=== PATIENT | female | born 1985 | race Caucasian/White ===

== ENCOUNTER 2019-07-14 09:21 | Emergency (ER) | payer SELFPAY ==
[~2019-07-14] VITALS: Ht 177.8 cm; Wt 98.0 kg
[2019-07-14] MEDS ORDERED: SODIUM CHLORIDE 0.9% 1,000 ML IV ONE (10:33)
[2019-07-14] MEDS ORDERED: MORPHINE SULFATE 4 MG/ML CPJ (NOT FOR IM USE) IV STA (10:33)
[2019-07-14] MEDS ORDERED: ONDANSETRON HCL 4MG/2ML INJ IV STA (10:33)
[2019-07-14] MEDS ORDERED: MECLIZINE 25MG TABLET PO ONE (10:45)
[2019-07-14 11:30] LABS: BASOPHILS % 0.2 % (0.0-2.0); EOSINOPHILS % 0.1 % (0.0-5.0); HEMATOCRIT. 45.3 % (36.0-48.0); LYMPHOCYTES % 14.2 % (20.0-50.0); MEAN CORPUSCULAR HEMOGLOBIN 27.4 pg (28.0-32.0); MEAN CORPUSCULAR VOLUME 82.5 fL (81.0-99.0); MONOCYTES % 4.1 % (2.0-8.0); NEUTROPHILS % 81.4 % (40.0-76.0); PLATELET 210 x1000/uL (130-400); RED BLOOD CELL COUNT 5.49 mill/uL (4.2-5.4); RED CELL DISTRIBUTION WIDTH 14.7 % (11.6-14.6)
[2019-07-14 11:41] LABS: CHLORIDE 107 mEq/L (98-107)
[2019-07-14 11:45] LABS: ETHANOL BLOOD < 10 mg/dL
[2019-07-14 12:02] LABS: PROTHROMBIN TIME 10.1 sec (9.6-11.0)
[2019-07-14 12:32] LABS: CLARITY URINE TURBID (CLEAR); COLOR URINE YELLOW (YELLOW); KETONES URINE NEGATIVE (NEGATIVE); LEUKOCYTE ESTERASE URINE 2+ (NEGATIVE); NITRITE URINE NEGATIVE (NEGATIVE); OCCULT BLOOD URINE 1+ (NEGATIVE); PH URINE 5.5 (4.5-8.0); PROTEIN URINE NEGATIVE (NEGATIVE); SPECIFIC GRAVITY URINE 1.022 (1.005-1.030); UROBILINOGEN URINE 0.2 E.U./dL (0.2-1.0)
[2019-07-14] MEDS ORDERED: ACETAMINOPHEN 500MG TABLET PO ONE (12:45)
[2019-07-14] MEDS ORDERED: MORPHINE SULFATE 4 MG/ML CPJ (NOT FOR IM USE) IV ONE (12:45)
[2019-07-14] MEDS ORDERED: ONDANSETRON HCL 4MG/2ML INJ IV ONE (12:45)
[2019-07-14 12:53] LABS: *AMPHETAMINES SCREEN URINE NEGATIVE (NEGATIVE); *BARBITURATES SCREEN URINE NEGATIVE (NEGATIVE); *BENZODIAZEPINES SCREEN URINE NEGATIVE (NEGATIVE); *COCAINE SCREEN URINE NEGATIVE (NEGATIVE)
[2019-07-14 12:54] LABS: METHADONE URINE SCREEN NEGATIVE (NEGATIVE); PHENCYCLIDINE URINE SCREEN NEGATIVE (NEGATIVE)
[2019-07-14 12:56] LABS: CANNABINOID URINE SCREEN PRESUMTIVE POSITIVE (NEGATIVE); OPIATES URINE SCREEN PRESUMTIVE POSITIVE (NEGATIVE)
[2019-07-14] MEDS ORDERED: CEFTRIAXONE 1 G PREMIX 50 ML IV ONE (14:00)
[2019-07-14 15:45] VITALS: BP 146/84
== END 2019-07-14 16:05 | disposition home or self-care (01) ==
LOC: ER 09:43 → CANBEDREQ 20:11
DX: R55 Syncope and collapse (principal); S09.8XXA Other specified injuries of head, initial encounter; N39.0 Urinary tract infection, site not specified; F12.10 Cannabis abuse, uncomplicated; Z88.0 Allergy status to penicillin; W01.0XXA Fall on same level from slipping, tripping and stumbling without subsequent striking against object, initial encounter; Y93.89 Activity, other specified; Y92.018 Other place in single-family (private) house as the place of occurrence of the external cause
CPT/HCPCS: 36415; 70450; 71045; 72125; 80053; 80305; 80320; 81003; 81025; 83880; 84484; 85025; 85610; 93005; 96361; 96374; 96375; 96376; 99284; J2270; J2405; J7030; J8597; G0480

== ENCOUNTER 2019-12-14 13:19 | Emergency (ER) | payer MEDICAID ==
[~2019-12-14] VITALS: Ht 167.6 cm; Wt 112.0 kg
[2019-12-14] MEDS ORDERED: ACETAMINOPHEN 325MG TABLET PO ONE (14:30)
[2019-12-14 16:37] VITALS: BP 140/98
== END 2019-12-14 16:38 | disposition home or self-care (01) ==
LOC: ER 13:29
DX: M79.642 Pain in left hand (principal); E03.9 Hypothyroidism, unspecified; Z88.0 Allergy status to penicillin
CPT/HCPCS: 73130; 81025; 99283

== ENCOUNTER 2020-01-29 14:44 | Emergency (ER) | payer MEDICAID ==
[~2020-01-29] VITALS: Ht 165.1 cm; Wt 112.0 kg
[2020-01-29 14:47] VITALS: BP 111/81
[2020-01-29] MEDS ORDERED: ACETAMINOPHEN 325MG TABLET PO PRN (16:30)
== END 2020-01-29 18:56 | disposition left against medical advice (07) ==
LOC: ER 14:44
DX: O20.0 Threatened abortion (principal); Z3A.08 8 weeks gestation of pregnancy; E03.9 Hypothyroidism, unspecified; Z88.0 Allergy status to penicillin; Z98.890 Other specified postprocedural states
CPT/HCPCS: 93005; 99283

== ENCOUNTER 2020-01-30 17:13 | Emergency (ER) | payer MEDICAID ==
[~2020-01-30] VITALS: Ht 165.1 cm; Wt 111.3 kg
[2020-01-30 17:18] VITALS: BP 144/66
[2020-01-30 18:52] LABS: CLARITY URINE CLOUDY (CLEAR); COLOR URINE RED (YELLOW); KETONES URINE NEGATIVE (NEGATIVE); LEUKOCYTE ESTERASE URINE 1+ (NEGATIVE); NITRITE URINE NEGATIVE (NEGATIVE); OCCULT BLOOD URINE 3+ (NEGATIVE); PROTEIN URINE 2+ (NEGATIVE); SPECIFIC GRAVITY URINE 1.026 (1.005-1.030); UROBILINOGEN URINE 0.2 E.U./dL (0.2-1.0)
[2020-01-30 18:56] LABS: BASOPHILS % 1.2 % (0.0-2.0); EOSINOPHILS % 2.2 % (0.0-5.0); HEMATOCRIT. 42.1 % (36.0-48.0); HEMOGLOBIN. 13.7 g/dL (12.0-16.0); LYMPHOCYTES % 28.4 % (20.0-50.0); MEAN CORPUSCULAR HEMOGLOBIN 27.3 pg (28.0-32.0); MEAN CORPUSCULAR VOLUME 83.5 fL (81.0-99.0); MEAN PLATELET VOLUME 9.5 fl (7.4-10.4); MONOCYTES % 5.3 % (2.0-8.0); NEUTROPHILS % 62.9 % (40.0-76.0); PLATELET 259 x1000/uL (130-400); RED BLOOD CELL COUNT 5.04 mill/uL (4.2-5.4); RED CELL DISTRIBUTION WIDTH 14.7 % (11.6-14.6)
[2020-01-30 19:02] LABS: CHLORIDE 107 mEq/L (98-107)
[2020-01-30 19:06] LABS: *AMPHETAMINES SCREEN URINE NEGATIVE (NEGATIVE)
[2020-01-30 19:07] LABS: *BARBITURATES SCREEN URINE NEGATIVE (NEGATIVE); *BENZODIAZEPINES SCREEN URINE NEGATIVE (NEGATIVE); *COCAINE SCREEN URINE NEGATIVE (NEGATIVE); METHADONE URINE SCREEN NEGATIVE (NEGATIVE); OPIATES URINE SCREEN NEGATIVE (NEGATIVE); PHENCYCLIDINE URINE SCREEN NEGATIVE (NEGATIVE)
[2020-01-30 19:13] LABS: CANNABINOID URINE SCREEN PRESUMTIVE POSITIVE (NEGATIVE)
[2020-01-30 19:13] LABS: B-HCG QUANTITATIVE 28 mIU/mL (<3)
== END 2020-01-30 21:15 | disposition home or self-care (01) ==
LOC: ER 17:13
DX: O03.9 Complete or unspecified spontaneous abortion without complication (principal); O23.11 Infections of bladder in pregnancy, first trimester; Z3A.00 Weeks of gestation of pregnancy not specified; Z88.0 Allergy status to penicillin; Z98.890 Other specified postprocedural states; E03.9 Hypothyroidism, unspecified
CPT/HCPCS: 36415; 76801; 80053; 80305; 81003; 81025; 84702; 85025; 86850; 86900; 93005; 99285

== ENCOUNTER 2020-03-12 21:46 | Emergency (ER) | payer MEDICAID ==
[~2020-03-12] VITALS: Ht 167.6 cm; Wt 107.0 kg
[2020-03-12 21:48] VITALS: BP 136/82
[2020-03-12] MEDS ORDERED: KETOROLAC 30MG/ML VIAL IM ONE (23:30)
== END 2020-03-12 23:54 | disposition home or self-care (01) ==
LOC: ER 21:46
DX: H60.8X1 Other otitis externa, right ear (principal); E03.8 Other specified hypothyroidism; Z88.0 Allergy status to penicillin
CPT/HCPCS: 96372; 99283; J1885

== ENCOUNTER 2020-07-14 11:10 | Emergency (ER) | payer MEDICAID | END 2020-07-14 12:01 | disposition left against medical advice (07) | LOC: ER 11:10 | DX: Z53.21 Procedure and treatment not carried out due to patient leaving prior to being seen by health care provider (principal) ==

== ENCOUNTER 2020-12-06 09:14 | Emergency (ER) | payer MEDICAID ==
[~2020-12-06] VITALS: Ht 165.1 cm; Wt 113.0 kg
[2020-12-06 09:57] LABS: CLARITY URINE CLEAR (CLEAR); COLOR URINE YELLOW (YELLOW); KETONES URINE NEGATIVE (NEGATIVE); LEUKOCYTE ESTERASE URINE NEGATIVE (NEGATIVE); NITRITE URINE NEGATIVE (NEGATIVE); OCCULT BLOOD URINE 3+ (NEGATIVE); PH URINE 5.5 (4.5-8.0); PROTEIN URINE TRACE (NEGATIVE); SPECIFIC GRAVITY URINE 1.024 (1.005-1.030); UROBILINOGEN URINE 0.2 E.U./dL (0.2-1.0)
[2020-12-06 10:06] LABS: BASOPHILS % 0.6 % (0.0-2.0); EOSINOPHILS % 2.8 % (0.0-5.0); HEMATOCRIT. 40.3 % (36.0-48.0); HEMOGLOBIN. 13.5 g/dL (12.0-16.0); LYMPHOCYTES % 28.1 % (20.0-50.0); MEAN CORPUSCULAR HEMOGLOBIN 27.5 pg (28.0-32.0); MEAN PLATELET VOLUME 9.1 fl (7.4-10.4); MONOCYTES % 5.8 % (2.0-8.0); NEUTROPHILS % 62.7 % (40.0-76.0); PLATELET 259 x1000/uL (130-400); RED BLOOD CELL COUNT 4.91 mill/uL (4.2-5.4); RED CELL DISTRIBUTION WIDTH 14.9 % (11.6-14.6)
[2020-12-06 10:12] LABS: CHLORIDE 111 mEq/L (98-107)
[2020-12-06 10:22] LABS: B-HCG QUANTITATIVE < 1 mIU/mL (<3)
[2020-12-06] MEDS ORDERED: ACETAMINOPHEN 325MG TABLET PO ONE (10:45)
[2020-12-06 12:00] VITALS: BP 149/75
[2020-12-06] MEDS ORDERED: TOPUD PO (12:18)
== END 2020-12-06 12:33 | disposition home or self-care (01) ==
LOC: ER 09:14
DX: D25.9 Leiomyoma of uterus, unspecified (principal); E03.9 Hypothyroidism, unspecified; Z88.0 Allergy status to penicillin
CPT/HCPCS: 36415; 76830; 76856; 80053; 81003; 81025; 84702; 85025; 86850; 86900; 99284

== ENCOUNTER 2021-01-25 16:35 | Emergency (ER) | payer OTHER, MEDICAID ==
[~2021-01-25] VITALS: Ht 167.6 cm; Wt 118.0 kg
[~2021-01-25 16:35] MED LIST: IMOD MT; OMEP20CA14 MT; ONDA4TAB5 MT; TOPUD PO
[2021-01-25] MEDS ORDERED: KETOROLAC 30MG/ML VIAL IV ONE (19:15)
[2021-01-25 19:47] LABS: BASOPHILS % 0.6 % (0.0-2.0); EOSINOPHILS % 1.6 % (0.0-5.0); HEMATOCRIT. 35.9 % (36.0-48.0); HEMOGLOBIN. 12.3 g/dL (12.0-16.0); LYMPHOCYTES % 25.6 % (20.0-50.0); MEAN CORPUSCULAR HEMOGLOBIN 27.8 pg (28.0-32.0); MEAN CORPUSCULAR VOLUME 81.1 fL (81.0-99.0); MEAN PLATELET VOLUME 9.2 fl (7.4-10.4); MONOCYTES % 4.7 % (2.0-8.0); NEUTROPHILS % 67.5 % (40.0-76.0); PLATELET 233 x1000/uL (130-400); RED BLOOD CELL COUNT 4.42 mill/uL (4.2-5.4); RED CELL DISTRIBUTION WIDTH 14.8 % (11.6-14.6)
[2021-01-25 19:49] LABS: CHLORIDE 110 mEq/L (98-107)
[2021-01-25 19:59] LABS: B-HCG QUANTITATIVE 15 mIU/mL (<3)
[2021-01-25 20:17] LABS: CLARITY URINE CLEAR (CLEAR); COLOR URINE YELLOW (YELLOW); KETONES URINE TRACE (NEGATIVE); LEUKOCYTE ESTERASE URINE NEGATIVE (NEGATIVE); NITRITE URINE NEGATIVE (NEGATIVE); OCCULT BLOOD URINE NEGATIVE (NEGATIVE); PROTEIN URINE NEGATIVE (NEGATIVE); SPECIFIC GRAVITY URINE 1.027 (1.005-1.030); UROBILINOGEN URINE 0.2 E.U./dL (0.2-1.0)
[2021-01-26] MEDS ORDERED: ACETAMINOPHEN 325MG TABLET PO ONE (00:45)
[2021-01-26 02:25] VITALS: BP 111/69
== END 2021-01-26 02:34 | disposition home or self-care (01) ==
LOC: ER 16:35
DX: R10.2 Pelvic and perineal pain (principal); D25.9 Leiomyoma of uterus, unspecified; E03.9 Hypothyroidism, unspecified; E28.2 Polycystic ovarian syndrome; Z88.0 Allergy status to penicillin; Z98.890 Other specified postprocedural states
CPT/HCPCS: 36415; 76830; 76856; 80048; 81003; 81025; 84702; 85025; 99285

== ENCOUNTER 2021-06-28 03:25 | Emergency (ER) | payer OTHER ==
[~2021-06-28] VITALS: Ht 165.1 cm; Wt 115.6 kg
[2021-06-28 03:37] VITALS: BP 114/79
[2021-06-28] MEDS ORDERED: ACETAMINOPHEN 325MG TABLET PO ONE (04:00)
[2021-06-28 04:19] LABS: EOSINOPHILS % 3.6 % (0.0-5.0); HEMATOCRIT. 40.9 % (36.0-48.0); HEMOGLOBIN. 13.7 g/dL (12.0-16.0); LYMPHOCYTES % 32.8 % (20.0-50.0); MEAN CORPUSCULAR HEMOGLOBIN 27.1 pg (28.0-32.0); MEAN CORPUSCULAR VOLUME 81.2 fL (81.0-99.0); MEAN PLATELET VOLUME 9.3 fl (7.4-10.4); MONOCYTES % 6.6 % (2.0-8.0); PLATELET 288 x1000/uL (130-400); RED BLOOD CELL COUNT 5.04 mill/uL (4.2-5.4); RED CELL DISTRIBUTION WIDTH 14.6 % (11.6-14.6)
[2021-06-28 04:28] LABS: CHLORIDE 114 mEq/L (98-107)
[2021-06-28 04:41] LABS: B-HCG QUANTITATIVE < 1 mIU/mL (<3); HCG SCREEN NEGATIVE
[2021-06-28 05:18] LABS: CLARITY URINE CLOUDY (CLEAR); COLOR URINE YELLOW (YELLOW); KETONES URINE NEGATIVE (NEGATIVE); LEUKOCYTE ESTERASE URINE TRACE (NEGATIVE); NITRITE URINE NEGATIVE (NEGATIVE); OCCULT BLOOD URINE 3+ (NEGATIVE); PROTEIN URINE 1+ (NEGATIVE); SPECIFIC GRAVITY URINE 1.031 (1.005-1.030)
== END 2021-06-28 10:07 | disposition home or self-care (01) ==
LOC: ER 03:25
DX: D25.9 Leiomyoma of uterus, unspecified (principal); N93.9 Abnormal uterine and vaginal bleeding, unspecified; E03.9 Hypothyroidism, unspecified; Z88.0 Allergy status to penicillin; Z79.899 Other long term (current) drug therapy
CPT/HCPCS: 36415; 76830; 76856; 80053; 81003; 81025; 84702; 84703; 85025; 86850; 86900; 99284

== ENCOUNTER 2022-11-17 16:45 | Emergency (ER) | payer OTHER ==
[2022-11-17 19:00] VITALS: BP 118/82
[2022-11-17 19:28] LABS: BASOPHILS % 0.4 % (0.0-2.0); EOSINOPHILS % 1.2 % (0.0-5.0); HEMATOCRIT. 38.9 % (36.0-48.0); HEMOGLOBIN. 12.8 g/dL (12.0-16.0); LYMPHOCYTES % 29.8 % (20.0-50.0); MEAN CORPUSCULAR HEMOGLOBIN 27.5 pg (28.0-32.0); MEAN CORPUSCULAR VOLUME 83.3 fL (81.0-99.0); MEAN PLATELET VOLUME 9.4 fl (7.4-10.4); MONOCYTES % 6.5 % (2.0-8.0); NEUTROPHILS % 62.1 % (40.0-76.0); PLATELET 265 x1000/uL (130-400); RED BLOOD CELL COUNT 4.68 mill/uL (4.2-5.4); RED CELL DISTRIBUTION WIDTH 14.5 % (11.6-14.6)
[2022-11-17 19:35] LABS: CHLORIDE 108 mEq/L (98-107)
[2022-11-17] MEDS ORDERED: POTASSIUM CHLORIDE 20MEQ TABLET SR PO ONE (20:00)
[2022-11-17] MEDS ORDERED: LEVETIRACETAM 500MG PREMIX 100 ML IV ONE (22:30)
== END 2022-11-17 23:03 | disposition left against medical advice (07) ==
LOC: ER 16:45
DX: R56.9 Unspecified convulsions (principal); E03.9 Hypothyroidism, unspecified; Z20.822 Contact with and (suspected) exposure to COVID-19
CPT/HCPCS: 36415; 70450; 71045; 80053; 85025; 87426; 99285; C9803

== ENCOUNTER 2023-08-21 12:32 | Emergency (ER) | payer MEDICAID, OTHER ==
[~2023-08-21] VITALS: Ht 177.8 cm; Wt 113.0 kg
[2023-08-21 12:38] VITALS: O2SAT 98
[2023-08-21 13:26] LABS: BASOPHILS % 0.8 % (0.0-2.0); EOSINOPHILS % 2.5 % (0.0-5.0); HEMOGLOBIN. 13.2 g/dL (12.0-16.0); LYMPHOCYTES % 23.4 % (20.0-50.0); MEAN CORPUSCULAR HEMOGLOBIN 27.2 pg (28.0-32.0); MEAN CORPUSCULAR HGB CONC 32.9 g/dL (31.0-37.0); MEAN CORPUSCULAR VOLUME 82.8 fL (81.0-99.0); MEAN PLATELET VOLUME 8.8 fl (7.4-10.4); MONOCYTES % 4.5 % (2.0-8.0); NEUTROPHILS % 68.8 % (40.0-76.0); PLATELET 262 x1000/uL (130-400); RED BLOOD CELL COUNT 4.83 mill/uL (4.2-5.4); RED CELL DISTRIBUTION WIDTH 14.5 % (11.6-14.6)
[2023-08-21 13:47] LABS: ALANINE AMINOTRANSFERASE 9 IU/L (10-49); ALBUMIN 4.2 g/dL (3.2-4.8); ASPARTATE AMINOTRANSFERASE 11 IU/L (<34); BILIRUBIN TOTAL 0.2 mg/dL (0.1-1.0); CALCIUM 9.5 mg/dL (8.7-10.4); CARBON DIOXIDE 26 mEq/L (21-32); CHLORIDE 107 mEq/L (98-107); CREATININE 0.8 mg/dL (0.6-1.0); GLUCOSE 180 mg/dL (70-105); POTASSIUM 3.6 mEq/L (3.5-5.1); PROTEIN TOTAL 7.3 g/dL (6.0-8.3); SODIUM 139 mEq/L (136-145); UREA NITROGEN BLOOD 13 mg/dL (9-23)
[2023-08-21 13:47] LABS: CLARITY URINE CLOUDY (CLEAR); COLOR URINE YELLOW (YELLOW); GLUCOSE URINE NEGATIVE (NEGATIVE); KETONES URINE NEGATIVE (NEGATIVE); LEUKOCYTE ESTERASE URINE TRACE (NEGATIVE); NITRITE URINE NEGATIVE (NEGATIVE); OCCULT BLOOD URINE 2+ (NEGATIVE); PH URINE 5.5 (4.5-8.0); PROTEIN URINE NEGATIVE (NEGATIVE); SPECIFIC GRAVITY URINE 1.026 (1.005-1.030)
[2023-08-21 13:55] LABS: HCG SCREEN NEGATIVE
[2023-08-21 14:21] LABS: BACTERIA URINE 3+; SQUAMOUS EPITHELIAL CELL URINE 3+ /lpf (RARE/1+)
[2023-08-21 14:24] LABS: TRICHOMONAS URINE 3+; WBC URINE 0-2 /hpf (0-2)
[2023-08-21 14:25] LABS: RBC URINE 0-2 /hpf (0-2)
[2023-08-21] MEDS: METRONIDAZOLE 500MG TABLET PO ONE (15:01)
[2023-08-21] MEDS ORDERED: NITR-87 MT (15:11)
[2023-08-21] MEDS ORDERED: METR-167 MT (15:11)
[2023-08-21 15:31] VITALS: BP 123/86; PULSE 77; RESP 18; TEMP 98.4
== END 2023-08-21 15:49 | disposition home or self-care (01) ==
LOC: ER 13:23
DX: N39.0 Urinary tract infection, site not specified (principal); A59.01 Trichomonal vulvovaginitis; Z88.0 Allergy status to penicillin; Z98.890 Other specified postprocedural states; Z86.39 Personal history of other endocrine, nutritional and metabolic disease; Z86.59 Personal history of other mental and behavioral disorders
CPT/HCPCS: 36415; 80053; 81003; 81025; 84703; 85025; 99283

== ENCOUNTER 2024-12-23 13:11 | Emergency (ER) | payer MEDICAID ==
[~2024-12-23] VITALS: Ht 172.7 cm; Wt 130.0 kg
[~2024-12-23 13:11] MED LIST changes: +METR-167 MT; +NITR-87 MT
[2024-12-23] MEDS ORDERED: LORAZEPAM 2MG/ML UD SYRINGE ONE (13:23)
[2024-12-23] MEDS: LORAZEPAM 2MG/ML INJ IM ONE (13:28)
[2024-12-23] MEDS: LORAZEPAM 2MG/ML UD SYRINGE IM SCH (13:30)
[2024-12-23] MEDS ORDERED: LEVE1000 PO (13:36)
[2024-12-23] MEDS: DIPHENHYDRAMINE 50MG/ML VIAL IM ONE (13:44)
[2024-12-23] MEDS: ZIPRASIDONE MESYLATE 20MG/VIAL IM ONE (13:44)
[2024-12-23] MEDS: MIDAZOLAM HCL 2 MG/2 ML VIAL IM ONE (13:45)
[2024-12-23] MEDS: LEVETIRACETAM 1000MG PREMIX 100 ML IV SCH (14:26)
[2024-12-23 14:35] VITALS: O2SAT 98
[2024-12-23 15:03] LABS: BASOPHILS % 0.2 % (0.0-2.0); HEMATOCRIT. 40.8 % (36.0-48.0); HEMOGLOBIN. 13.2 g/dL (12.0-16.0); LYMPHOCYTES % 13.5 % (20.0-50.0); MEAN CORPUSCULAR HEMOGLOBIN 26.9 pg (28.0-32.0); MEAN CORPUSCULAR HGB CONC 32.3 g/dL (31.0-37.0); MEAN CORPUSCULAR VOLUME 83.1 fL (81.0-99.0); MONOCYTES % 2.4 % (2.0-8.0); NEUTROPHILS % 82.9 % (40.0-76.0); RED BLOOD CELL COUNT 4.91 mill/uL (4.2-5.4); RED CELL DISTRIBUTION WIDTH 15.1 % (11.6-14.6)
[2024-12-23 15:07] LABS: CARBON DIOXIDE 24 mEq/L (21-32); CHLORIDE 106 mEq/L (98-107); POTASSIUM 4.2 mEq/L (3.5-5.1); SODIUM 139 mEq/L (136-145)
[2024-12-23 15:13] LABS: CREATININE 0.8 mg/dL (0.6-1.0); ETHANOL BLOOD < 10 mg/dL (<10); GLUCOSE 191 mg/dL (70-105); UREA NITROGEN BLOOD < 5 mg/dL (9-23)
[2024-12-23 15:15] LABS: DIFFERENTIAL COMMENT 1
[2024-12-23 17:16] LABS: MEAN PLATELET VOLUME 9.3 fl (7.4-10.4); PLATELET 189 x1000/uL (130-400)
[2024-12-23 18:08] LABS: HCG SCREEN NEGATIVE
[2024-12-23] MEDS ORDERED: LEVETIRACETAM 1000MG PREMIX 100 ML IV ONE (21:00)
[2024-12-24 01:17] LABS: *AMPHETAMINES SCREEN URINE NEGATIVE (NEGATIVE); *BARBITURATES SCREEN URINE NEGATIVE (NEGATIVE); *BENZODIAZEPINES SCREEN URINE PRESUMPTIVE POSITIVE (NEGATIVE); *COCAINE SCREEN URINE PRESUMPTIVE POSITIVE (NEGATIVE); CANNABINOID URINE SCREEN PRESUMPTIVE POSITIVE (NEGATIVE); ECSTASY MDMA SCREEN URINE NEGATIVE (NEGATIVE); METHADONE URINE SCREEN NEGATIVE (NEGATIVE); OPIATES URINE SCREEN NEGATIVE (NEGATIVE); PHENCYCLIDINE URINE SCREEN NEGATIVE (NEGATIVE)
[2024-12-24 02:30] VITALS: TEMP 36.8; O2SAT 98
[2024-12-24 03:06] VITALS: BP 122/89; PULSE 80; RESP 18; TEMP 98.24
[2024-12-24] MEDS ORDERED: TOPIRAMATE 25MG TABLET PO SCH (09:00)
[2024-12-24] MEDS ORDERED: LEVETIRACETAM 500MG TABLET PO SCH (09:00)
== END 2024-12-24 07:38 | disposition home or self-care (01) ==
LOC: ER 13:11 → EDBEDREQ 18:13 → EDBEDREQDT 12-24 02:50 → EDBEDREQ 12-24 02:50 → EDBEDREQTM 12-24 02:50 → ER 12-24 07:38
DX: G93.89 Other specified disorders of brain (principal); R56.9 Unspecified convulsions; E03.9 Hypothyroidism, unspecified; Z79.899 Other long term (current) drug therapy; Z88.0 Allergy status to penicillin; Z90.89 Acquired absence of other organs
CPT/HCPCS: 80048; 80320; 84703; 83735; 85025; 36415; 70450; 93005; 96365; 96366; 96372; 99291; 80305; J1953; J1200; J2060; J2250; J3486; Z7610 ×2; A6449; A4606; G0480

== ENCOUNTER 2025-01-11 00:44 | Emergency (ER) | payer MEDICAID ==
[~2025-01-11] VITALS: Ht 167.6 cm; Wt 120.0 kg
[~2025-01-11 00:44] MED LIST changes: +LEVE1000 PO
[2025-01-11 00:52] VITALS: O2SAT 90
[2025-01-11] MEDS ORDERED: LEVETIRACETAM 500MG PREMIX 100 ML IV ONE (02:15)
[2025-01-11] MEDS: LEVETIRACETAM 1500MG PREMIX 100 ML IV NR (02:15)
[2025-01-11] MEDS: LEVETIRACETAM 500MG TABLET PO ONE (03:22)
[2025-01-11] MEDS: TOPIRAMATE 25MG TABLET PO SCH (03:22)
[2025-01-11 03:24] LABS: BASOPHILS % 0.9 % (0.0-2.0); EOSINOPHILS % 0.8 % (0.0-5.0); HEMATOCRIT. 40.5 % (36.0-48.0); HEMOGLOBIN. 13.4 g/dL (12.0-16.0); LYMPHOCYTES % 15.1 % (20.0-50.0); MEAN PLATELET VOLUME 9.2 fl (7.4-10.4); MONOCYTES % 3.3 % (2.0-8.0); NEUTROPHILS % 79.9 % (40.0-76.0); PLATELET 216 x1000/uL (130-400); RED BLOOD CELL COUNT 4.94 mill/uL (4.2-5.4); RED CELL DISTRIBUTION WIDTH 15.2 % (11.6-14.6)
[2025-01-11 03:42] LABS: CREATININE 1.0 mg/dL (0.6-1.0); UREA NITROGEN BLOOD 10 mg/dL (9-23)
[2025-01-11 03:43] LABS: ASPARTATE AMINOTRANSFERASE 12 IU/L (<34)
[2025-01-11 03:44] LABS: BILIRUBIN TOTAL 0.4 mg/dL (0.1-1.0); PROTEIN TOTAL 7.3 g/dL (6.0-8.3)
[2025-01-11 03:49] LABS: HCG SCREEN NEGATIVE
[2025-01-11] MEDS ORDERED: TOPA25 MT (04:24)
[2025-01-11] MEDS ORDERED: LEVE750T4 MT (04:24)
[2025-01-11 06:24] VITALS: BP 130/84; PULSE 76; RESP 18; TEMP 36.4; O2SAT 90
== END 2025-01-11 07:04 | disposition home or self-care (01) ==
LOC: ER 00:44
DX: S01.512A Laceration without foreign body of oral cavity, initial encounter (principal); F17.200 Nicotine dependence, unspecified, uncomplicated; G40.909 Epilepsy, unspecified, not intractable, without status epilepticus; Z91.148 Patient's other noncompliance with medication regimen for other reason; Z88.0 Allergy status to penicillin; Z79.899 Other long term (current) drug therapy; X58.XXXA Exposure to other specified factors, initial encounter; Y93.89 Activity, other specified; Y92.89 Other specified places as the place of occurrence of the external cause; Y99.8 Other external cause status
CPT/HCPCS: 36415; 80053; 84703; 85025; 99284; J1953

== ENCOUNTER 2025-04-28 15:23 | Emergency (ER) | payer MEDICAID ==
[~2025-04-28 15:23] MED LIST changes: +LEVE750T4 MT; +TOPA25 MT
[2025-04-28 16:01] VITALS: PULSE 91; RESP 18; O2SAT 97
== END 2025-04-28 16:26 | disposition left against medical advice (07) ==
LOC: ER 15:23
DX: R51.9 Headache, unspecified (principal)
CPT/HCPCS: 99281